=== PATIENT | female | born 1985 | race Asian ===

== ENCOUNTER 2020-06-29 00:34 | Inpatient (IN) | payer SELFPAY ==
[~2020-06-29] VITALS: Ht 160 cm; Wt 56.7 kg
[2020-06-29 00:52] VITALS: Ht 160 cm; Wt 56.7 kg
[2020-06-29 02:33] LABS: PLATELET COUNT 218 x10^3mcL (130-400)
[2020-06-29 02:45] LABS: CALCIUM 8.8 mg/dL (8.5-10.1); CARBON DIOXIDE 24.1 mmol/L (21-32); CHLORIDE SERUM 102 mmol/L (98-107); GFR1 > 60 mL/min; GLUCOSE SERUM 113 mg/dL (74-106); POTASSIUM SERUM 3.9 mmol/L (3.5-5.1); SODIUM SERUM 139 mmol/L (136-145)
[2020-06-29 02:49] LABS: ALBUMIN 4.2 g/dL (3.4-5.0); ALKALINE PHOSPHATASE 53 U/L (46-116); ALT/SGPT 37 U/L (14-59); AST/SGOT 22 U/L (15-37); BILIRUBIN TOTAL 0.65 mg/dL (0.20-1.00); LIPASE 117 IU/L (73-393); TOTAL PROTEIN, SERUM 7.8 g/dL (6.4-8.2)
[2020-06-29 02:51] LABS: BASOPHIL % 2.6 % (0-2); RED CELL DISTRIBUTION WIDTH 11.3 % (11.5-14.5)
[2020-06-29] MEDS ORDERED: BUPROPION HCL150 M1 PO (08:02)
[2020-06-29] MEDS ORDERED: COZAAR50 M1 PO (08:03)
[2020-06-29 11:30] VITALS: BP 112/70
[2020-06-29 16:05] VITALS: BP 105/64
[2020-06-29 20:18] VITALS: BP 97/58
[2020-06-30 05:37] VITALS: BP 97/65
[2020-06-30 08:07] LABS: CALCIUM 7.6 mg/dL (8.5-10.1); CARBON DIOXIDE 22.2 mmol/L (21-32); CHLORIDE SERUM 108 mmol/L (98-107); CREATININE SERUM 0.8 mg/dL (0.6-1.0); GFR1 > 60 mL/min; GLUCOSE SERUM 137 mg/dL (74-106); POTASSIUM SERUM 3.6 mmol/L (3.5-5.1); SODIUM SERUM 140 mmol/L (136-145)
[2020-06-30 08:41] LABS: BASOPHIL % 0.3 % (0-2); PLATELET COUNT 166 x10^3mcL (130-400); RED CELL DISTRIBUTION WIDTH 12.1 % (11.5-14.5)
[2020-06-30 09:05] VITALS: BP 121/66
[2020-06-30] MEDS ORDERED: ACETAMINOPHEN-H1 TA1 PO (11:26)
[2020-06-30 12:51] VITALS: BP 113/68
[2020-06-30 16:12] VITALS: BP 113/68
[2020-06-30 16:25] VITALS: BP 113/68
== END 2020-06-30 18:16 | disposition home or self-care (01) | DRG 343 ==
LOC: ED 00:34 → MU 07:14
PROVIDERS: Emergency Medicine; Surgery; ADMIT Internal Medicine; ATTEND Internal Medicine
PROC: 0DTJ4ZZ Resection of Appendix, Percutaneous Endoscopic Approach (ICD-10-PCS; principal; 2020-06-29 08:00)
DX: K35.80 Unspecified acute appendicitis (principal); Z20.828 Contact with and (suspected) exposure to other viral communicable diseases; I10 Essential (primary) hypertension; K42.9 Umbilical hernia without obstruction or gangrene; Z79.899 Other long term (current) drug therapy
CPT/HCPCS: C9113; G0378; J1170; J2270; J2405; J2543; J3010; J3490; J7030; J7042; Q9967